=== PATIENT | female | born 1995 | race Caucasian/White ===

== ENCOUNTER 2020-12-05 06:43 | Emergency (ER) | payer MEDICARE, OTHER ==
[~2020-12-05] VITALS: Ht 165.1 cm; Wt 72.6 kg
--- NOTE | 2020-12-05 07:02 | ED Psychosocial ---
General Chief Complaint: Suicidal Ideation Risk Stated Complaint: ANXIETY Source: patient Exam Limitations: no limitations History of Present Illness Date Seen by Provider: Dec 05, 2020 Time Seen by Provider: 06:47 Initial Comments Patient presents to the ER by EMS from home with chief complaint that she has been having panic attacks and anxiety worsening over the past couple days as well as thoughts that she would be better off not existing. She says she has had suicidal thoughts and thought about either cutting on herself with a knife or throwing herself down in front of some railroad tracks. She has done inpatient psychiatric placement in the past although that was in [place]. She says she is been off her medicines for the past year and 1/2 to 2 years because she does not have insurance after moving to [facility]. She saw Joy a counselor but did not feel like she was getting any help from her. She states she has a history of bipolar disorder. She says here lately she has been doing splitting and having trouble with interpersonal relationship stating she is mad at the world and wants to kill people but declines to state any specific person, reason why or how she would do it. When asked what splitting means to her she declines to give any further detail. The patient states she has been told in the past that she is faking it and manipulative and this has contributed to her current breakdown. She does have a partner at home that she lives with but she says she cannot go back there because she does not feel safe but declines to give any reason why. She denies partner/domestic violence. She is however voluntary to go inpatient and try and get restarted on medications. She says in the past sertraline and Geodon have helped. Allergies and Home Medications Allergies Uncoded Allergies: PAIN PILLS (Adverse Reaction, Unknown, Nausea, 12/05/20) Patient Home Medication List Home Medication List Reviewed: Yes Review of Systems Constitutional: No chills, No diaphoresis EENTM: No ear discharge, No ear pain Respiratory: No cough, No short of breath Cardiovascular: No chest pain, No palpitations Gastrointestinal: No abdominal pain, No nausea, No vomiting Genitourinary: No discharge, No dysuria Control/STD Prophylaxis: None Musculoskeletal: No back pain, No joint pain All Other Systems Reviewed Negative Unless Noted: Yes Past Tmaypxt-Omhfpe-Iopwnc Hx Patient Social History Tobacco Use?: No Use of E-Cig and/or Vaping dev: No Substance use?: Yes (Synthetic cannabis) Substance type: Marijuana (Synthetic cannabis) Alcohol Use?: No Physical Exam Vital Signs - First Documented 12/05/20 06:43 Temp 36.1 Pulse 114 Resp 18 B/P (MAP) 141/103 (116) Pulse Ox 100 O2 Delivery Room Air Capillary Refill : Height, Weight, BMI Height: '" Weight: lbs. oz. kg; BMI Method: General Appearance: WD/WN, mild distress HEENT: PERRL/EOMI, pharynx normal Neck: full range of motion, normal inspection Respiratory: lungs clear, normal breath sounds, no respiratory distress, no accessory muscle use Cardiovascular: normal peripheral pulses, regular rate, rhythm Peripheral Pulses: 2+ Radial Pulses (R), 2+ Radial Pulses (L) Neurologic/Psychiatric: alert, oriented x 3, other (Tearful, anxious) Appearance/Memory: appropriate appearance, appropriate insight, neat, no memory impairment Behavior/Eye Contact: cooperative, good eye contact, normal speech Thoughts/Hallucinations: normal thought pattern, no apparent hallucination Skin: normal color, warm/dry Progress/Results/Core Measures Results/Orders Lab Results Laboratory Tests Test 12/05/20 07:14 12/05/20 07:21 12/05/20 07:56 Range/Units Urine Color YELLOW Urine Clarity CLEAR Urine pH 7.0 5-9 Urine Specific [place] 1.025 H 1.016-1.022 Urine Protein TRACE H NEGATIVE Urine Glucose (UA) NEGATIVE NEGATIVE Urine Ketones 2+ H NEGATIVE Urine Nitrite NEGATIVE NEGATIVE Urine Bilirubin NEGATIVE NEGATIVE Urine Urobilinogen 0.2 < = 1.0 MG/DL Urine Leukocyte Esterase TRACE H NEGATIVE Urine RBC (Auto) NEGATIVE NEGATIVE Urine RBC 0-2 /HPF Urine WBC 2-5 /HPF Urine Squamous Epithelial Cells 5-10 /HPF Urine Crystals NONE /LPF Urine Bacteria MODERATE H /HPF Urine Casts NONE /LPF Urine Mucus SMALL H /LPF Urine Culture Indicated YES Urine Opiates Screen NEGATIVE NEGATIVE Urine Oxycodone Screen NEGATIVE NEGATIVE Urine Methadone Screen NEGATIVE NEGATIVE Urine Propoxyphene Screen NEGATIVE NEGATIVE Urine Barbiturates Screen NEGATIVE NEGATIVE Ur Tricyclic Antidepressants Screen NEGATIVE NEGATIVE Urine Phencyclidine Screen NEGATIVE NEGATIVE Urine Amphetamines Screen NEGATIVE NEGATIVE Urine Methamphetamines Screen NEGATIVE NEGATIVE Urine Benzodiazepines Screen NEGATIVE NEGATIVE Urine Cocaine Screen NEGATIVE NEGATIVE Urine Cannabinoids Screen POSITIVE H NEGATIVE SARS-CoV-2 RNA (RT-PCR) Not Detected Not Detecte White Blood Count 10.6 4.3-11.0 10^3/uL Red Blood Count 5.39 H 3.80-5.11 10^6/uL Hemoglobin 16.8 H 11.5-16.0 g/dL Hematocrit 49 35-52 % Mean Corpuscular Volume 91 80-99 fL Mean Corpuscular Hemoglobin 31 25-34 pg Mean Corpuscular Hemoglobin Concent 34 32-36 g/dL Red Cell Distribution Width 11.6 10.0-14.5 % Platelet Count 321 130-400 10^3/uL Mean Platelet Volume 11.1 9.0-12.2 fL Immature Granulocyte % (Auto) 1 % Neutrophils (%) (Auto) 64 42-75 % Lymphocytes (%) (Auto) 30 12-44 % Monocytes (%) (Auto) 4 0-12 % Eosinophils (%) (Auto) 0 0-10 % Basophils (%) (Auto) 1 0-10 % Neutrophils # (Auto) 6.8 1.8-7.8 10^3/uL Lymphocytes # (Auto) 3.2 1.0-4.0 10^3/uL Monocytes # (Auto) 0.5 0.0-1.0 10^3/uL Eosinophils # (Auto) 0.0 0.0-0.3 10^3/uL Basophils # (Auto) 0.1 0.0-0.1 10^3/uL Immature Granulocyte # (Auto) 0.1 0.0-0.1 10^3/uL Sodium Level 142 135-145 MMOL/L Potassium Level 3.7 3.6-5.0 MMOL/L Chloride Level 107 98-107 MMOL/L Carbon Dioxide Level 18 L 21-32 MMOL/L Anion Gap 17 H 5-14 MMOL/L Blood Urea Nitrogen 5 L 7-18 MG/DL Creatinine 0.79 0.60-1.30 MG/DL Estimat Glomerular Filtration Rate > 60 BUN/Creatinine Ratio 6 Glucose Level 99 70-105 MG/DL Calcium Level 10.4 H 8.5-10.1 MG/DL Corrected Calcium 8.5-10.1 MG/DL Total Bilirubin 0.5 0.1-1.0 MG/DL Aspartate Amino Transf (AST/SGOT) 17 5-34 U/L Alanine Aminotransferase (ALT/SGPT) 13 0-55 U/L Alkaline Phosphatase 72 40-136 U/L Total Protein 8.7 H 6.4-8.2 GM/DL Albumin 5.5 H 3.2-4.5 GM/DL Salicylates Level < 5.0 L 5.0-20.0 MG/DL Acetaminophen Level < 10 L 10-30 UG/ML Serum Alcohol < 10 <10 MG/DL My Orders Orders - SMITA CHRISTINE Ua Culture If Indicated (12/05/20 06:56) Cbc With Automated Diff (12/05/20 06:56) Comprehensive Metabolic Panel (12/05/20 06:56) Alcohol (12/05/20 06:56) Drug Screen Stat (Urine) (12/05/20 06:56) Acetaminophen (12/05/20 06:56) Salicylate (12/05/20 06:56) Ekg Tracing (12/05/20 06:56) Monitor-Rhythm Ecg Trace Only (12/05/20 06:56) Bh Status Checks/Observation Q15M (12/05/20 06:56) Covid 19 Inhouse Test (12/05/20 06:56) Urine Bedside (12/05/20 06:56) General/Regular (12/05/20 Breakfast) Urine Culture (12/05/20 07:14) Hydroxyzine Cap/Tab (Vistaril) (12/05/20 09:30) Medications Given in ED Current Medications Medications Dose Ordered Sig/Quin Route Start Time Stop Time Status Last Admin Dose Admin Hydroxyzine Pamoate 25 mg ONCE ONCE PO 12/05/20 09:30 12/05/20 09:31 DC 12/05/20 09:43 25 MG Vital Signs/I&O 12/05/20 12/05/20 06:43 13:00 Temp 36.1 Pulse 114 89 Resp 18 18 B/P (MAP) 141/103 (116) 132/89 Pulse Ox 100 98 O2 Delivery Room Air Progress Progress Note #1: Time: 07:08 Progress Note Offered patient breakfast. We will check some labs in anticipation of inpatient placement to try and get her started on some antipsychotics. The patient does not show any symptoms or give any history of panic attack however she does seem to be having difficulty managing interpersonal relationships and is actively endorsing suicidal ideation. She is voluntary to go inpatient at this time. We will have the screeners talk to her next. Progress Note #2: Time: 08:50 Progress Note Patient states nurse that she cannot eat. Patient earlier said she was eating 3 or 4 burritos a day and felt malnourished. Her breakfast tray was brought to her which she ordered off the [employer] and she cannot give a reason why she can eat it just that she cannot eat. Initial ECG Impression Date: Dec 05, 2020 Initial ECG Impression Time: 07:10 Initial ECG Rate: 82 Initial ECG Rhythm: Normal Sinus Initial ECG Intervals: Normal Initial ECG Impression: Normal Initial ECG Comparisson: No Previous ECG Available Comment Normal sinus rhythm without clinically relevant ST elevation or depression. Departure Impression Primary Impression: Anxiety Additional Impression: Suicidal ideation Disposition: 65 XFER TO PSYCH HOSP/UNIT Condition: Stable Transfer Transfer Reason: Exceeds level of care Time Spoke to Accepting Phy: 11:45 Transfer Progress Notes Rahe[facility] Guerrier has accepted the patient, Dr. Govea. Transfer Time: 13:00 Transfer Facility: [facility] [place] Method of Transfer: Private Vehicle (Sajan) Departure-Patient Inst. Referrals: UNKNOWN (PCP) Primary Care Physician Patient Instructions: OUTPT MENTAL HEALTH SERVICES SMITA CHRISTINE Dec 05, 2020 07:02
[2020-12-05 07:33] LABS: BILIRUBIN,URINE NEGATIVE (NEGATIVE); CLARITY,URINE CLEAR; COLOR,URINE YELLOW; GLUCOSE, URINE (UA) NEGATIVE (NEGATIVE); KETONES,URINE 2+ (NEGATIVE); LEUKOCYTE ESTERASE ,URINE TRACE (NEGATIVE); NITRITE,URINE NEGATIVE (NEGATIVE); PROTEIN,URINE TRACE (NEGATIVE)
[2020-12-05 07:49] LABS: BACTERIA,URINE MODERATE /HPF; RBC,URINE 0-2 /HPF
[2020-12-05 07:52] LABS: AMPHETAMINE SCREEN, URINE NEGATIVE (NEGATIVE); BARBITURATE SCREEN URINE NEGATIVE (NEGATIVE); BENZODIAZEPINES SCREEN URINE NEGATIVE (NEGATIVE); CANNABINOID SCREEN, URINE POSITIVE (NEGATIVE); COCAINE SCREEN URINE NEGATIVE (NEGATIVE); METHADONE STAT NEGATIVE (NEGATIVE); METHAMPHETAMINE SCREEN URINE S NEGATIVE (NEGATIVE); OPIATE SCREEN URINE NEGATIVE (NEGATIVE); OXYCODONE STAT NEGATIVE (NEGATIVE); PROPOXYPHENE STAT NEGATIVE (NEGATIVE); TRICYCLIC ANTIDEPRESSANTS SCRE NEGATIVE (NEGATIVE)
[2020-12-05 08:10] LABS: BASOPHILS # (AUTO) 0.1 10^3/uL (0.0-0.1); BASOPHILS % (AUTO) 1 % (0-10); EOSINOPHILS % (AUTO) 0 % (0-10); HEMATOCRIT 49 % (35-52); HEMOGLOBIN 16.8 g/dL (11.5-16.0); LYMPHOCYTES # (AUTO) 3.2 10^3/uL (1.0-4.0); LYMPHOCYTES % (AUTO) 30 % (12-44); MEAN CORPUSCULAR HEMOGLOBIN 31 pg (25-34); MEAN CORPUSCULAR HGB CONC 34 g/dL (32-36); MEAN CORPUSCULAR VOLUME 91 fL (80-99); MEAN PLATELET VOLUME 11.1 fL (9.0-12.2); MONOCYTES # (AUTO) 0.5 10^3/uL (0.0-1.0); MONOCYTES % (AUTO) 4 % (0-12); NEUTROPHILS # (AUTO) 6.8 10^3/uL (1.8-7.8); NEUTROPHILS % (AUTO) 64 % (42-75); PLATELET COUNT 321 10^3/uL (130-400); WHITE BLOOD COUNT 10.6 10^3/uL (4.3-11.0)
[2020-12-05 08:23] LABS: CHLORIDE 107 MMOL/L (98-107); POTASSIUM 3.7 MMOL/L (3.6-5.0); SODIUM 142 MMOL/L (135-145)
[2020-12-05 08:24] LABS: ALBUMIN 5.5 GM/DL (3.2-4.5)
[2020-12-05 08:25] LABS: CALCIUM 10.4 MG/DL (8.5-10.1)
[2020-12-05 08:26] LABS: GLUCOSE 99 MG/DL (70-105); TOTAL PROTEIN 8.7 GM/DL (6.4-8.2)
[2020-12-05 08:27] LABS: CARBON DIOXIDE 18 MMOL/L (21-32)
[2020-12-05 08:28] LABS: BILIRUBIN,TOTAL 0.5 MG/DL (0.1-1.0)
[2020-12-05 08:30] LABS: ALKALINE PHOSPHATASE 72 U/L (40-136); CREATININE SERUM 0.79 MG/DL (0.60-1.30); GFR ESTIMATED > 60
[2020-12-05 08:31] LABS: ACETAMINOPHEN < 10 UG/ML (10-30); BUN/CREATININE RATIO 6
[2020-12-05 08:33] LABS: ALANINE AMINOTRANSFERASE 13 U/L (0-55); SALICYLATE < 5.0 MG/DL (5.0-20.0)
[2020-12-05] MEDS ORDERED: hydrOXYzine (VISTARIL/ATARAX) 25 MG capsule/tablet PO ONE (09:30)
[2020-12-05 13:00] VITALS: BP 132/89
== END 2020-12-05 12:58 ==
LOC: ER 06:45
DX: F41.9 Anxiety disorder, unspecified (principal); R45.851 Suicidal ideations; Z20.822 Contact with and (suspected) exposure to COVID-19
CPT/HCPCS: 80053; 80306; 81000; 84703; 85025; 87088; 87636; 93005; 99283; G0480 ×3; 36415; 80320; 80329

== ENCOUNTER 2020-12-25 09:44 | Emergency (ER) | payer MEDICARE, OTHER ==
[~2020-12-25] VITALS: Ht 165.1 cm; Wt 75.2 kg
[2020-12-25 13:08] LABS: BASOPHILS # (AUTO) 0.1 10^3/uL (0.0-0.1); BASOPHILS % (AUTO) 1 % (0-10); EOSINOPHILS # (AUTO) 0.2 10^3/uL (0.0-0.3); EOSINOPHILS % (AUTO) 3 % (0-10); HEMATOCRIT 41 % (35-52); HEMOGLOBIN 14.3 g/dL (11.5-16.0); LYMPHOCYTES # (AUTO) 2.5 10^3/uL (1.0-4.0); LYMPHOCYTES % (AUTO) 29 % (12-44); MEAN CORPUSCULAR HEMOGLOBIN 31 pg (25-34); MEAN CORPUSCULAR HGB CONC 35 g/dL (32-36); MEAN CORPUSCULAR VOLUME 90 fL (80-99); MEAN PLATELET VOLUME 10.8 fL (9.0-12.2); MONOCYTES # (AUTO) 0.5 10^3/uL (0.0-1.0); MONOCYTES % (AUTO) 5 % (0-12); NEUTROPHILS # (AUTO) 5.3 10^3/uL (1.8-7.8); NEUTROPHILS % (AUTO) 62 % (42-75); PLATELET COUNT 264 10^3/uL (130-400); WHITE BLOOD COUNT 8.5 10^3/uL (4.3-11.0)
--- NOTE | 2020-12-25 13:17 | ED Psychosocial ---
General Chief Complaint: Psych/Social Disorder Stated Complaint: ANXIETY;DEPRESSION;SUICIDAL Nursing Triage Note: Pt first triage at 1041. Pt brought to room at 1205. Pt c/o suicidal ideation with plan to "slice my throat open." Pt reports feeling this way due, "to my mental illness and my quality of life is suffering." Pt reports attempts in the past by OD, hanging and "slashing wrists." Pt reports being out of meds today and would like refills and inpt treatment. Source: patient Exam Limitations: no limitations History of Present Illness Date Seen by Provider: Dec 25, 2020 Time Seen by Provider: 13:15 Initial Comments To ER with reports that she has been suicidal for the past 2 to 3 days and has a plan to slit her throat with an X-Acto knife. She is on Zyprexa and Zoloft that she ran out of these today. She lives in [facility] with her boyfriend. She was here a month ago on December 05 and transferred to [facility] in [place] for inpatient psych. She states she felt like it did help. Timing/Duration: constant Severity: moderate Associated Symptoms: anxiety, impaired concentration Allergies and Home Medications Allergies Uncoded Allergies: PAIN PILLS (Adverse Reaction, Unknown, Nausea, 12/05/20) Patient Home Medication List Home Medication List Reviewed: Yes Review of Systems Constitutional: see HPI EENTM: see HPI Respiratory: no symptoms reported Cardiovascular: no symptoms reported Genitourinary: no symptoms reported Musculoskeletal: no symptoms reported Skin: no symptoms reported Psychiatric/Neurological: See HPI Past Nczwcdc-[id number]-Tpqrzm Hx Patient Social History Tobacco Use?: No Substance use?: Yes Substance type: Marijuana Alcohol Use?: No Pt feels they are or have been: No Physical Exam Vital Signs - First Documented 12/25/20 12:05 Temp 36.9 Pulse 73 Resp 16 B/P (MAP) 115/77 (90) Pulse Ox 98 O2 Delivery Nasal Cannula Capillary Refill : Less Than 3 Seconds Height, Weight, BMI Height: '" Weight: lbs. oz. kg; 27.00 BMI Method: General Appearance: WD/WN, no apparent distress HEENT: PERRL/EOMI, normal ENT inspection Neck: non-tender, full range of motion Respiratory: no respiratory distress, no accessory muscle use Gastrointestinal: normal bowel sounds, non tender, soft Neurologic/Psychiatric: alert, normal mood/affect, oriented x 3 Appearance/Memory: appropriate appearance, appropriate insight, neat Behavior/Eye Contact: cooperative, good eye contact Thoughts/Hallucinations: normal thought pattern, no apparent hallucination Skin: normal color, warm/dry Progress/Results/Core Measures Results/Orders Lab Results Laboratory Tests Test 12/25/20 12:05 12/25/20 12:54 12/25/20 13:05 Range/Units Urine Color YELLOW Urine Clarity CLEAR Urine pH 6.5 5-9 Urine Specific [place] 1.015 L 1.016-1.022 Urine Protein NEGATIVE NEGATIVE Urine Glucose (UA) NEGATIVE NEGATIVE Urine Ketones NEGATIVE NEGATIVE Urine Nitrite NEGATIVE NEGATIVE Urine Bilirubin NEGATIVE NEGATIVE Urine Urobilinogen 0.2 < = 1.0 MG/DL Urine Leukocyte Esterase TRACE H NEGATIVE Urine RBC (Auto) 1+ H NEGATIVE Urine RBC RARE /HPF Urine WBC RARE /HPF Urine Squamous Epithelial Cells 2-5 /HPF Urine Crystals NONE /LPF Urine Bacteria FEW H /HPF Urine Casts NONE /LPF Urine Mucus NEGATIVE /LPF Urine Culture Indicated NO Urine Opiates Screen NEGATIVE NEGATIVE Urine Oxycodone Screen NEGATIVE NEGATIVE Urine Methadone Screen NEGATIVE NEGATIVE Urine Propoxyphene Screen NEGATIVE NEGATIVE Urine Barbiturates Screen NEGATIVE NEGATIVE Ur Tricyclic Antidepressants Screen NEGATIVE NEGATIVE Urine Phencyclidine Screen NEGATIVE NEGATIVE Urine Amphetamines Screen NEGATIVE NEGATIVE Urine Methamphetamines Screen NEGATIVE NEGATIVE Urine Benzodiazepines Screen NEGATIVE NEGATIVE Urine Cocaine Screen NEGATIVE NEGATIVE Urine Cannabinoids Screen POSITIVE H NEGATIVE White Blood Count 8.5 4.3-11.0 10^3/uL Red Blood Count 4.60 3.80-5.11 10^6/uL Hemoglobin 14.3 11.5-16.0 g/dL Hematocrit 41 35-52 % Mean Corpuscular Volume 90 80-99 fL Mean Corpuscular Hemoglobin 31 25-34 pg Mean Corpuscular Hemoglobin Concent 35 32-36 g/dL Red Cell Distribution Width 11.5 10.0-14.5 % Platelet Count 264 130-400 10^3/uL Mean Platelet Volume 10.8 9.0-12.2 fL Immature Granulocyte % (Auto) 0 % Neutrophils (%) (Auto) 62 42-75 % Lymphocytes (%) (Auto) 29 12-44 % Monocytes (%) (Auto) 5 0-12 % Eosinophils (%) (Auto) 3 0-10 % Basophils (%) (Auto) 1 0-10 % Neutrophils # (Auto) 5.3 1.8-7.8 10^3/uL Lymphocytes # (Auto) 2.5 1.0-4.0 10^3/uL Monocytes # (Auto) 0.5 0.0-1.0 10^3/uL Eosinophils # (Auto) 0.2 0.0-0.3 10^3/uL Basophils # (Auto) 0.1 0.0-0.1 10^3/uL Immature Granulocyte # (Auto) 0.0 0.0-0.1 10^3/uL Sodium Level 141 135-145 MMOL/L Potassium Level 3.9 3.6-5.0 MMOL/L Chloride Level 106 98-107 MMOL/L Carbon Dioxide Level 22 21-32 MMOL/L Anion Gap 13 5-14 MMOL/L Blood Urea Nitrogen 10 7-18 MG/DL Creatinine 0.82 0.60-1.30 MG/DL Estimat Glomerular Filtration Rate 86 BUN/Creatinine Ratio 12 Glucose Level 80 70-105 MG/DL Calcium Level 9.5 8.5-10.1 MG/DL Corrected Calcium 9.2 8.5-10.1 MG/DL Total Bilirubin 0.4 0.1-1.0 MG/DL Aspartate Amino Transf (AST/SGOT) 16 5-34 U/L Alanine Aminotransferase (ALT/SGPT) 11 0-55 U/L Alkaline Phosphatase 62 40-136 U/L Total Protein 7.2 6.4-8.2 GM/DL Albumin 4.4 3.2-4.5 GM/DL Serum Test, Qualitative NEGATIVE NEGATIVE Salicylates Level < 5.0 L 5.0-20.0 MG/DL Acetaminophen Level < 10 L 10-30 UG/ML Serum Alcohol < 10 <10 MG/DL SARS-CoV-2 RNA (RT-PCR) Not Detected Not Detecte My Orders Orders - GUY BAUMANN [employer] DEVELOPER Alcohol (12/25/20 12:47) Hcg,Qualitative Serum (12/25/20 12:47) Covid 19 Inhouse Test (12/25/20 12:47) Cbc With Automated Diff (12/25/20 12:47) Comprehensive Metabolic Panel (12/25/20 12:47) Ua Culture If Indicated (12/25/20 12:47) Salicylate (12/25/20 12:47) Acetaminophen (12/25/20 12:47) Drug Screen Stat (Urine) (12/25/20 12:47) Ekg Tracing (12/25/20 12:47) General/Regular (12/25/20 Lunch) Vital Signs/I&O 12/25/20 12:05 Temp 36.9 Pulse 73 Resp 16 B/P (MAP) 115/77 (90) Pulse Ox 98 O2 Delivery Nasal Cannula Blood Pressure Mean: 90 Departure Communication (Admissions) Pleasant cooperative 1434-patient states that she does feel safe to go home that she would not harm herself and she would just like her medications refilled.She states the Zoloft and Zyprexa seem to be helping but they have caused some troubles with focusing. She states she was suicidal thinking she wouuld be without her meds. She states taht if i could refill them for her she would prefer to go home and feels that she could go safely wihtout concernof hurting herself as she does not want to risk harming her relationship with her boyfriend with whom she lives. She wouuld like a refill of zyprexa 10mg po daily and zoloft 100mg po daily as well as something prn for anxiety. Ill make her an appointment with [facility]. Impression Primary Impression: Anxiety and depression Disposition: 01 HOME, SELF-CARE Condition: Stable Departure-Patient Inst. Decision time for Depature: 14:34 Referrals: UNKNOWN (PCP) Primary Care Physician Patient Instructions: Anxiety, Adult ED Add. Discharge Instructions: 1. Medication as directed you are to see [facility] on January 09 at 8:30 AM but they would like you to arrive a little early to fill out paperwork. All discharge instructions reviewed with patient and/or family. Voiced understanding. Scripts Hydroxyzine Pamoate (Vistaril) 25 Mg Capsule 25 MG PO Q4H PRN for ANXIETY, #20 CAP Prov: GUY BAUMANN APRN 12/25/20 Sertraline HCl (Zoloft) 100 Mg Tablet 100 MG PO DAILY, #30 TAB Prov: GUY BAUMANN APRN 12/25/20 Olanzapine (Zyprexa) 10 Mg Tablet 10 MG PO DAILY, #30 TAB Prov: GUY BAUMANN APRN 12/25/20 GUY BAUMANN APRN Dec 25, 2020 13:17
[2020-12-25 13:19] LABS: ALBUMIN 4.4 GM/DL (3.2-4.5); CHLORIDE 106 MMOL/L (98-107); POTASSIUM 3.9 MMOL/L (3.6-5.0); SODIUM 141 MMOL/L (135-145)
[2020-12-25 13:20] LABS: CALCIUM 9.5 MG/DL (8.5-10.1)
[2020-12-25 13:21] LABS: GLUCOSE 80 MG/DL (70-105); TOTAL PROTEIN 7.2 GM/DL (6.4-8.2)
[2020-12-25 13:22] LABS: CARBON DIOXIDE 22 MMOL/L (21-32)
[2020-12-25 13:23] LABS: BILIRUBIN,TOTAL 0.4 MG/DL (0.1-1.0)
[2020-12-25 13:25] LABS: ALKALINE PHOSPHATASE 62 U/L (40-136); CREATININE SERUM 0.82 MG/DL (0.60-1.30); GFR ESTIMATED 86
[2020-12-25 13:27] LABS: ACETAMINOPHEN < 10 UG/ML (10-30); BUN/CREATININE RATIO 12
[2020-12-25 13:28] LABS: ALANINE AMINOTRANSFERASE 11 U/L (0-55); SALICYLATE < 5.0 MG/DL (5.0-20.0)
[2020-12-25 13:37] LABS: BILIRUBIN,URINE NEGATIVE (NEGATIVE); CLARITY,URINE CLEAR; COLOR,URINE YELLOW; GLUCOSE, URINE (UA) NEGATIVE (NEGATIVE); KETONES,URINE NEGATIVE (NEGATIVE); LEUKOCYTE ESTERASE ,URINE TRACE (NEGATIVE); NITRITE,URINE NEGATIVE (NEGATIVE); PH,URINE 6.5 (5-9); PROTEIN,URINE NEGATIVE (NEGATIVE)
[2020-12-25 13:44] LABS: BACTERIA,URINE FEW /HPF; RBC,URINE RARE /HPF; WBC,URINE RARE /HPF
[2020-12-25 13:53] LABS: AMPHETAMINE SCREEN, URINE NEGATIVE (NEGATIVE); BARBITURATE SCREEN URINE NEGATIVE (NEGATIVE); BENZODIAZEPINES SCREEN URINE NEGATIVE (NEGATIVE); CANNABINOID SCREEN, URINE POSITIVE (NEGATIVE); COCAINE SCREEN URINE NEGATIVE (NEGATIVE); METHADONE STAT NEGATIVE (NEGATIVE); METHAMPHETAMINE SCREEN URINE S NEGATIVE (NEGATIVE); OPIATE SCREEN URINE NEGATIVE (NEGATIVE); OXYCODONE STAT NEGATIVE (NEGATIVE); PROPOXYPHENE STAT NEGATIVE (NEGATIVE); TRICYCLIC ANTIDEPRESSANTS SCRE NEGATIVE (NEGATIVE)
[2020-12-25] MEDS ORDERED: SERT100T PO (14:45)
[2020-12-25] MEDS ORDERED: OLAN10TA3 PO (14:45)
[2020-12-25] MEDS ORDERED: HYDR25CA PO (14:45)
[2020-12-25 14:54] VITALS: BP 115/77
--- OUTSIDE RECORDS SUMMARY | 2020-12-28 08:41 | XMS REPORT | Clinical Summary ---
Author Author [facility] Address Unknown Phone Unavailable Care Team Providers Care Machine Plug Shaper Name Role Phone Unassigned, None PCP Unavailable Allergies Comments Active Allergy Reactions Severity Noted Date Hydrocodone Nausea And 12/05/2020 Vomiting Latex Rash Medium 12/05/2020 Oxycodone Nausea And 12/05/2020 Vomiting Medications End Date Status Medication Sig Dispensed Refills Start Date Active multivitamin w/minerals Take 1 tablet 0 (CENTRUM) TABS by mouth daily. Active Cumming-3 Fatty Acids (FISH Take 1,200 mg 0 OIL) 1200 MG CAPS by mouth daily. Active sertraline (ZOLOFT) 100 Take 1 tablet 14 tablet 0 MG tabletIndications: (100 mg 1 Major Depressive Disorder total) by mouth daily. Active OLANZapine (ZYPREXA) 10 Take 1 tablet 14 tablet 0 MG tabletIndications: (10 mg total) 1 Major Depressive Disorder by mouth at bedtime. Active nitrofurantoin, Take 1 6 capsule 0 monohydrate, (MACROBID) capsule (100 1 100 MG mg total) by capsuleIndications: mouth every Uncomplicated Urinary 12 (twelve) Tract Infection hours. Active OLANZapine (ZYPREXA) 5 MG Take 1/2 to 1 14 tablet 0 tabletIndications: Major tablet by 1 Depressive Disorder mouth daily as needed for anxiety. Active Problems Problem Noted Date Cannabis use disorder, severe, dependence 12/06/2020 EZRA (generalized anxiety disorder) 12/06/2020 Borderline personality disorder 12/06/2020 Suicidal ideation 12/06/2020 Psychophysiological insomnia 12/06/2020 PCOS (polycystic ovarian syndrome) 12/06/2020 Mixed obsessional thoughts and acts 12/06/2020 Severe episode of recurrent major depressive disorder , with psychotic 12/05/2020 features Encounters Care Team Description Date Type Specialty 12/05/2020 Travel from Last 3 Months Family History Medical History Relation Name Comments Cancer Father Mental illness Mother Relation Name Status Comments Father Mother Alive Social History Date Tobacco Use Types Packs/Day Years Used Never Smoker Smokeless Tobacco: Never Used Comments Alcohol Use Standard Drinks/Week Never 0 (1 standard drink = 0.6 o z pure alcohol) Alcohol Habits Answer Date Recorded How often do you have a drink containing alcohol? Never 12/10/2020 How many drinks containing alcohol do you have on No t asked a typical day when you are drinking? How often do you have six or more drinks on one Never 12/10/2020 occasion? Social Isolation Answer Date Recorded In a typical week, how many times do you talk on Never 12/10/2020 the phone with family, friends, or neig hbors? How often do you get together with friends or Never 12/10/2020 relatives? How often do you attend shinto or latter day Never 12/10/2020 services? Do you belong to any clubs or organizations such No 12/10/2020 as shinto groups, unions, fraternal or athletic groups, or school groups? How often do you attend meetings of the clubs or Never 12/10/2020 organizations you belong to? Are you now , , , , Living with partner 12/10/2020 never or living with a partner? Physical Activity Answer Date Recorded On average, how many days per week do you engage Not asked in moderate to strenuous exercise (like walking fast, running, jogging, dancing, swimmi ng, biking, or other activities that cause a light or heavy sweat)? On average, how many minutes do you engage in 0 min 12/10/2020 exercise at this level? Stress Answer Date Recorded Do you feel stress - tense, restless, nervous, or Very muc h 12/10/2020 anxious, or unable to sleep at night be cause your mind is troubled all the time - these d ays? Financial Resource Strain Answer Date Recorde d How hard is it for you to pay for the very basics Hard 12/10/2020 like food, housing, medical care, and h eating? Intimate Partner Violence Answer Date Recorde d Within the last year, have you been afraid of your No 12/10/2020 partner or ex-partner? Within the last year, have you been humiliated or No 12/10/2020 emotionally abused in other ways by you r partner or ex-partner? Within the last year, have you been kicked, hit, No 12/10/2020 slapped, or otherwise physically hurt b y your partner or ex-partner? Within the last year, have you been raped or No 12/10/2020 forced to have any kind of sexual activ ity by your partner or ex-partner? Food Insecurity Answer Date Recorded Within the past 12 months, you worried that your Often cassidy e 12/10/2020 food would run out before you got money to buy more. Within the past 12 months, the food you bought Sometimes t rue 12/10/2020 just didn't last and you didn't have mo arash to get more. Transportation Needs Answer Date Recorded In the past 12 months, has lack of transportation Yes 12/10/2020 kept you from medical appointments or f rom getting medications? In the past 12 months, has lack of transportation Yes 12/10/2020 kept you from meetings, work, or gettin g things needed for daily living? Control Partners Comments Sexually Active None Male Yes Sex Assigned at Date Recorded Not on file Industry Job Start Date Occupation Not on file Not on file Not on file Date Recorded COVID-19 Exposure Response 12/05/2020 10:50 AM CDT In the last month, have you been in contact with No / Unsure someone who was confirmed or suspected to have Coronavirus / COVID-19? Last Filed Vital Signs Reading Time Taken Comments Vital Sign 106/72 12/11/2020 9:18 AM CDT Blood Pressure 107 12/11/2020 9:18 AM CDT Pulse 37.1 C (98.7 F) 12/11/2020 9:17 AM CDT Temperature 16 12/11/2020 9:17 AM CDT Respiratory Rate 100% 12/11/2020 9:17 AM CDT Oxygen Saturation - - Inhaled Oxygen Concentration 75.3 kg (166 lb) 12/05/2020 7:46 PM CDT Weight 165.1 cm (5' 5") 12/05/2020 7:46 PM CDT Height 27.62 12/05/2020 7:46 PM CDT Body Mass Index Plan of Treatment Health Maintenance Due Date Last Done Comments Varicella Vaccines (1 of 1998 2 - 2-dose childhood series) HPV Vaccines (1 - 2-dose 2008 series) COVID-19 Vaccine (1) 2009 Annual Wellness Visit 2015 Hepatitis C Screening 2015 DTaP,Tdap,and Td Vaccines 2016 (1 - Tdap) MMR Vaccines-Adult 2016 Cervical Cancer Screening 2018 Influenza Vaccine (#1) 2021 Pneumo-Vaccine: 65+Yrs (1 2062 of 1 - PPSV23) HIB Vaccines Aged Out No longer eligible based on patient's age to complete this topic IPV Vaccines Aged Out No longer eligible based on patient's age to complete this topic MenB Vaccine (Bexsero) Aged Out No longer eligi ble based on patient's age to complete this topic Meningococcal Vaccine Aged Out No longer eligib le based on patient's age to complete this topic Pneumo-Vaccine: Peds (0-5 Aged Out No longer el igible based on patient's age to Yrs) & At-Risk Patients complete this topic (6-64 Yrs) Rotavirus Vaccines Aged Out No longer eligible based on patient's age to complete this topic Procedures Comments Procedure Name Priority Date/Time Associated Diag nosis URINALYSIS, REFLEX Routine 12/08/2020 CULTURE IF NEEDED 1:08 PM CDT HCG, SERUM, QUALITATIVE Timed 12/06/2020 6:14 AM CDT TSH (REFLEX FREE T4 IF Timed 12/06/2020 ABNORMAL) 6:14 AM CDT from Last 3 Months Results * Urinalysis, Reflex Culture If Needed (12/08/2020 1:08 PM CDT) Color, UA Yellow [facility] Appearance Cloudy [facility] Specific 1.020 1.003 - 1.030 [facility] [place] pH, UA 7.0 5.0 - 8.0 [facility] Leukoesterase, 1+ (A) Negative [facility] Nitrites, UA Negative Negative [facility] Protein, UA Negative Negative [facility] Glucose, UA Negative Negative [facility] Ketones, UA Negative Negative [facility] Urobilinogen, 0.2 0.2 EU [facility] Bilirubin, UA Negative Negative [facility] Hemoglobin, UA Negative Negative [facility] Squam Epithel, 4+ [facility] WBC, UA 4-10 (A) 0 - 3 [facility] RBC, UA 4-10 (A) 0 - 3 [facility] Bacteria, UA 2+ [facility] Hyaline Casts, 4 [facility] Specimen Urine - Urine specimen obtained by clean catch procedure (specimen) Narrative [facility] - 12/09/2020 6:37 AM CDT Urine was not cultured. Urinalysis results did not meet criteria for culture. Performing Organization Address City/[facility]/ZIP Code P rip Number [facility] [address] [place] [id number] * TSH (Reflex Free T4 if abnormal) (12/06/2020 6:14 AM CDT) TSH 0.538 0.400 - 4.000 uIU/mL [facility] Specimen Blood Performing Organization Address City/[facility]/ZIP [facility] P rip Number [facility] [address] [place] [id number] * hCG, serum, qualitative (12/06/2020 6:14 AM CDT) hCG Qual Negative Negative mIU/mL [facility] Specimen Blood Performing Organization Address City/[facility]/ZIP Code P rip Number [facility] [address] [place] [phone] from Last 3 Months Insurance Type Payer Benefit Subscriber ID Effective Phone Address Plan / Dates Group Medicare MEDICARE MEDICARE [id number] [address] [place] [address] Advance Directives For more information, please contact: [phone] Patient Syrup Maker Cook Explanation Type Date Recorded Advance Directives and Living Will Power of Report Developer Date Inactivated Comments Code Status Date Activated Full Code 12/11/2020 10:57 AM 12/11/2020 10:57 AM Full Code 12/05/2020 8:22 PM Care Teams Start Date End Date Machine Plug Shaper Relationship Specialty 12/05/20 Unassigned, None PCP - General [place]
--- OUTSIDE RECORDS SUMMARY | 2020-12-28 08:41 | XMS REPORT | Encounter Summary ---
Author Author [facility] Organization [facility] Address Unknown Phone Unavailable Care Team Providers Care Weight Reducing Technician Name Role Phone Unassigned, None PCP Unavailable Encounter Details Care Team Description Date Type Department 12/05/2020 Travel Social History Date Tobacco Use Types Packs/Day [...] 12/10/2020 relatives? How often do you attend christianity or cheondoism Never 12/10/2020 services? Do you belong to any clubs or organizations such No 12/10/2020 as christianity groups, unions, fraternal or athletic groups, or [...] or suspected to have Coronavirus / COVID-19? documented as of this encounter Plan of Treatment Not on filedocumented as of this encounter Visit Diagnoses Not on filedocumented in this encounter Additional Health Concerns Noted Time Assessment 12/05/2020 7:50 PM CDT A fall risk assessment has been complet ed for the patient documented as of this encounter Care Teams Start Date End Date Weight Reducing Technician Relationship Specialty 12/05/20 Unassigned, None PCP - General [place] documented as of this encounter
== END 2020-12-25 14:54 | disposition home or self-care (01) ==
LOC: EDUNIT# 09:44 → ER 09:46
DX: F41.9 Anxiety disorder, unspecified (principal); F32.9 Major depressive disorder, single episode, unspecified; Z20.822 Contact with and (suspected) exposure to COVID-19
CPT/HCPCS: 80053; 80306; 81000; 84703; 85025; 87636; 93005; 99283; G0480 ×3; 36415; 80320; 80329

== ENCOUNTER 2021-01-25 09:22 | Emergency (ER) | payer MEDICARE ==
[~2021-01-25] VITALS: Ht 165 cm; Wt 77.0 kg
[~2021-01-25 09:22] MED LIST: HYDR25CA PO; OLAN10TA3 PO; SERT100T PO
[2021-01-25 09:45] VITALS: BP 115/77
== END 2021-01-25 11:10 | disposition left against medical advice (07) ==
LOC: EDUNIT# 09:22 → ER 09:23
DX: R52 Pain, unspecified (principal); Z76.0 Encounter for issue of repeat prescription